=== PATIENT | female | born 1960 | race Caucasian/White ===

== ENCOUNTER 2017-04-15 13:43 | Emergency (ER) | payer BC ==
[~2017-04-15] VITALS: Ht 157.5 cm; Wt 80.5 kg
[2017-04-15 13:49] VITALS: Ht 157.5 cm; Wt 80.5 kg
[2017-04-15] MEDS ORDERED: HYDROCODONE/APAP (5/325) TAB PO ONE (14:30)
[2017-04-15 14:52] LABS: ADD SCAN DIFF NO
[2017-04-15 14:59] LABS: BASOPHILS % 0.2 % (0.0-2.0); EOSINOPHILS # 0.1 10^3/ul (0.0-0.5); EOSINOPHILS % 0.8 % (0.0-7.0); HEMATOCRIT 41.6 % (37.0-47.0); HEMOGLOBIN 13.6 g/dl (12.0-16.0); LYMPHOCYTES # 4.2 10^3/ul (0.8-2.9); LYMPHOCYTES % 36.4 % (15.0-51.0); MEAN CORPUSCULAR HEMOGLOBIN 31.4 pg (29.0-33.0); MEAN CORPUSCULAR HGB CONC 32.7 g/dl (32.0-37.0); MEAN CORPUSCULAR VOLUME 96.1 fl (82.0-101.0); MEAN PLATELET VOLUME 10.1 fl (7.4-10.4); MONOCYTE # 0.5 10^3/ul (0.3-0.9); MONOCYTES % 4.5 % (0.0-11.0); NEUTROPHIL # 6.6 10^3/ul (1.6-7.5); NEUTROPHILS % 57.7 % (39.0-77.0); PLATELET COUNT 346 10^3/UL (140-415); RED BLOOD COUNT 4.33 10^6/ul (4.20-5.40); RED CELL DISTRIBUTION WIDTH 12.6 % (11.5-14.5); WHITE BLOOD COUNT 11.4 10^3/ul (4.8-10.8)
--- NOTE | 2017-04-15 15:05 | RADRPT ---
PROCEDURE: US right upper extremity veins. CLINICAL INDICATION: Right arm pain and swelling. TECHNIQUE: Multiple longitudinal and transverse images of the right upper extremity venous tree wa s obtained with bae scale, pulsed Doppler, and color Doppler imaging. COMPARISON: None available FINDINGS: The right internal jugular, subclavian, axillary, brachial, basilic, cephalic, radial, and ulnar vei ns are patent. There is normal flow with augmentation and compressibility throughout. There is no t hrombus or occlusion. IMPRESSION: 1. Normal venous system of the right upper extremity. No evidence of thrombus or occlusion. RPTAT: QQ .Amilcar Gomes MD, MD Date Time Electronically viewed and signed by .Amilcar Gomes MD, MD on 04/15/2017 15:05 .R/
[2017-04-15 15:09] LABS: INR 0.88; PROTIME 11.9 Sec (12.2-14.2); PT RATIO 0.9
[2017-04-15 15:10] LABS: PARTIAL THROMBOPLASTIN TIME 23.8 Sec (25.0-35.0)
[2017-04-15 15:12] LABS: CALCIUM 9.7 mg/dl (8.4-10.2); CREATININE 0.6 mg/dl (0.44-1.00); POTASSIUM 4.5 mmol/L (3.5-5.1)
--- NOTE | 2017-04-15 15:34 | RADRPT ---
PROCEDURE: XR Right Forearm. CLINICAL INDICATION: Right forearm pain. TECHNIQUE: AP and lateral views of the right forearm were obtained. COMPARISON: No prior studies are available for comparison. FINDINGS: There is no fracture or dislocation. The soft tissues are normal. Articular surfaces are intact. There is no lytic or blastic lesion. There is no radiopaque foreign body. IMPRESSION: 1. Unremarkable images of the right forearm. RPTAT: QQ .Amilcar Gomes MD, MD Date Time Electronically viewed and signed by .Amilcar Gomes MD, on 04/15/2017 15:34 .R/
[2017-04-15] MEDS ORDERED: NAPR-260 PO (15:58)
[2017-04-15] MEDS ORDERED: HYDR-906 PO (15:58)
[2017-04-15 16:06] VITALS: BP 153/85; PULSE 75; RESP 19; TEMP 98.4
--- NOTE | 2017-04-15 16:23 | ERD ---
ER Documentation Chief Complaint Date/Time DATE: 04/15/17 TIME: 16:19 Chief Complaint RIGHT BELOW ELBOW PAIN, SLIGHT EDEMA ON FINGERS, NO TRAUMA ,GOOD CMS HPI 56-year-old female comes emergency department with right-sided elbow pain that goes down her forearms that started 2 days ago. She was seen by her primary care physician Dr. Amezquita referred her to the ER for further evaluation and care. She states it is achy, diffuse, moderate to severe. She has had swelling as well. She denies decreased sensation, temperature changes. She has not had any trauma. She denies fevers. ROS All systems reviewed and are negative except as per history of present illness. Medications Home Meds Active Scripts Naproxen* (Naprosyn*) 500 Mg Tablet, 500 MG PO BID Y for PAIN AND/OR INFLAMMATION, #30 TAB Prov:JACKELYN PICHARDO PA-C 04/15/17 Hydrocodone/Acetaminophen ([place] 5-325 Tablet) 1 Each Tablet, 1 TAB PO Q6H Y for PAIN, #15 TAB Prov:JACKELYN PICHARDO PA-C 04/15/17 Allergies Allergies: Coded Allergies: No Known Allergy (Unverified , 04/15/17) PMhx/Soc Medical and Surgical Hx: pt denies Medical Hx, pt denies Surgical Hx Hx Alcohol Use: No Hx Substance Use: No Hx Tobacco Use: No Smoking Status: Never smoker Physical Exam Vitals Vital Signs Date Time Temp Pulse Resp B/P Pulse Ox O2 Delivery O2 Flow Rate FiO2 04/15/17 16:06 98.4 75 19 153/85 100 Room Air 04/15/17 13:49 97.6 80 16 174/84 99 Physical Exam General: Well-developed, well-nourished. The patient appears in no acute distress. HEENT: Head is normocephalic, atraumatic. No scleral icterus. Neck: Supple. Nontender. Lungs: Clear to auscultation. Normal air movement. Heart: Regular rate and rhythm. S1 and S2 are normal. No murmurs, gallops, or rubs. Abdomen: Soft, nontender, nondistended. Bowel sounds are normoactive. Extremities: Diffuse soft tissue tenderness over the radial aspect of the right upper extremity, there are no bony deformities, radial pulses 2+ bilaterally, capillary refill less than 2 seconds. There is no pallor. Compartments of her right bilateral extremities are soft. There is no warmth, no erythema, no skin lesions. Neurologic: Alert and oriented 3. No focal deficits. Skin: Normal turgor. No rash or lesions. Result Diagram: 04/15/17 1428 04/15/17 1428 Results 24 hrs Laboratory Tests Test 04/15/17 14:28 White Blood Count 11.410^3/ul Red Blood Count 4.3310^6/ul Hemoglobin 13.6g/dl Hematocrit 41.6% Mean Corpuscular Volume 96.1fl Mean Corpuscular Hemoglobin 31.4pg Mean Corpuscular Hemoglobin Concent 32.7g/dl Red Cell Distribution Width 12.6% Platelet Count 08042^3/UL Mean Platelet Volume 10.1fl Neutrophils % 57.7% Lymphocytes % 36.4% Monocytes % 4.5% Eosinophils % 0.8% Basophils % 0.2% Nucleated Red Blood Cells % 0.0/100WBC Neutrophils # 6.610^3/ul Lymphocytes # 4.210^3/ul Monocytes # 0.510^3/ul Eosinophils # 0.110^3/ul Basophils # 0.010^3/ul Nucleated Red Blood Cells # 0.010^3/ul Prothrombin Time 11.9Sec Prothrombin Time Ratio 0.9 INR International Normalized Ratio 0.88 Activated Partial Thromboplast Time 23.8Sec Sodium Level 142mmol/L Potassium Level 4.5mmol/L Chloride Level 102mmol/L Carbon Dioxide Level 28mmol/L Anion Gap 17 Blood Urea Nitrogen 13mg/dl Creatinine 0.60mg/dl Glucose Level 117mg/dl Calcium Level 9.7mg/dl Current Medications Medications (Trade) Dose Ordered Sig/Ania Route PRN Reason Start Time Stop Time Status Last Admin Dose Admin Acetaminophen/ Hydrocodone Bitart ([place] (5/325)) 1 tab ONCE ONCE PO 04/15/17 14:30 04/15/17 14:31 DC 04/15/17 15:24 DIAGNOSTIC IMAGING REPORT Patient: TYRELL DOUGLAS : 1960 Age: 56 Sex: F MR #: [id number] DOS: 04/15/17 1412 Ordering MD: JACKELYN PICHARDO PA-C Location: [facility] Room/Bed: PROCEDURE: US right upper extremity veins. CLINICAL INDICATION: Right arm pain and swelling. TECHNIQUE: Multiple longitudinal and transverse images of the right upper extremity venous tree was obtained with bae scale, pulsed Doppler, and color Doppler imaging. COMPARISON: None available FINDINGS: The right internal jugular, subclavian, axillary, brachial, basilic, cephalic, radial, and ulnar veins are patent. There is normal flow with augmentation and compressibility throughout. There is no thrombus or occlusion. IMPRESSION: 1. Normal venous system of the right upper extremity. No evidence of thrombus or occlusion. RPTAT: QQ .Amilcar Gomes MD, MD Date Time Electronically viewed and signed by .Amilcar Gomes MD, on 04/15/2017 15:05 .R/ CC: JACKELYN PICHARDO PA-C DIAGNOSTIC IMAGING REPORT Patient: TYRELL DOUGLAS : 1960 Age: 56 Sex: F MR #: [id number] DOS: 04/15/17 1412 Ordering MD: JACKELYN PICHARDO PA-C Location: [facility] Room/Bed: PROCEDURE: XR Right Forearm. CLINICAL INDICATION: Right forearm pain. TECHNIQUE: AP and lateral views of the right forearm were obtained. COMPARISON: No prior studies are available for comparison. FINDINGS: There is no fracture or dislocation. The soft tissues are normal. Articular surfaces are intact. There is no lytic or blastic lesion. There is no radiopaque foreign body. IMPRESSION: 1. Unremarkable images of the right forearm. RPTAT: QQ .Amilcar Gomes MD, Date Time Electronically viewed and signed by .Amilcar Gomes MD, MD on 04/15/2017 15:34 .R/ CC: JACKELYN PICHARDO PA-C Procedures/MDM ED course: Patient was given [place] for pain. Patient's right upper extremity was placed in a Velcro wrist splint. Splint Assessment: Neurovascularly intact post splint placement with good fit. Medical decision makin-year-old female comes in with right upper extremity pain and swelling, patient likely presents with tendinitis. A deep Doppler ultrasound study was negative for DVT, x-rays are unremarkable. Labs are normal. No signs of infections, compartment syndrome, fracture, DVT, arterial occlusion, or infectious origin. I do not see any evidence of a lung limb threatening process. She will be given a short course of ibuprofen with [place] for home. She was given [place] in the emergency department, responded well, pain is under control and will be discharged, stable for outpatient management. Patient's blood pressure was elevated (>120/80) but appears stable without evidence of hypertension emergency or urgency. The patient was counseled about the risks of hypertension and urged to pursue outpatient monitoring and therapy within a week with their primary care physician. Departure Diagnosis: Primary Impression: Pain of right arm Condition: Good Patient Instructions: Tendonitis Referrals: REBECCA AMEZQUITA MD (PCP) Additional Instructions: Call your primary care doctor TOMORROW for an appointment during the next 1-2 days.See the doctor sooner or return here if your condition worsens before your appointment time. JACKELYN PICHARDO PA-C Apr 15, 2017 16:23
== END 2017-04-15 16:08 | disposition home or self-care (01) ==
LOC: FTE 13:43
DX: M79.601 Pain in right arm (principal)
CPT/HCPCS: 73090; 80048; 85025; 85610; 85730; 93971; Z7502; Z7610